=== PATIENT | female | born 2000 | race African-American/Black ===

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

== ENCOUNTER 2018-05-22 17:57 | Emergency (ER) | payer MEDICARE, OTHER ==
[2018-05-22 18:38] VITALS: RESP 18
[2018-05-22] MEDS ORDERED: SODIUM CHLORIDE 0.9% 1,000 ML IV STA ×2 (18:57→20:56)
--- NOTE | 2018-05-22 19:00 | ED ---
General Adult HPI - General Source: patient, RN notes reviewed Mode of arrival: ambulatory Limitations: no limitations <Faustino Yan - Last Filed: 05/22/18 19:57> <Guillermo Mcdowell - Last Filed: 05/22/18 21:12> - General Chief complaint: Abdominal Pain Stated complaint: abdominal & back pain Time Seen by Provider: 05/22/18 18:49 - History of Present Illness Initial comments: Patient 18-year-old female who is G1, P0, approximately 7 weeks by ultrasound, presents to the emergency room today with chief complaint of vaginal bleeding. Patient does admit that she was seen at [facility] 4 days ago. She states that she had all sounds and was told that she appear to be having a miscarriage. Patient does not that she went back [facility] yesterday was told that there could be a urinary tract infection. She states that she was prescribed antibiotics early in the but never got the prescription filled. Patient states she's been taking some over-the- counter medications. She states she still having cramping on the right side of the abdomen. Patient admits to vaginal bleeding that has been persistent since last . He has been to feeling hot and cold. She denies any other complaints. Patient denies any recent fever, chills, shortness of breath, chest pain, back pain, numbness or tingling, headaches or visual changes, or any other complaints. (Faustino Yan) - Related Data Home Medications Medication Instructions Recorded Confirmed Acetaminophen/Pamabrom [Midol 1 tab PO ONCE PRN 05/22/18 05/22/18 Caplet] Phenazopyridine HCl 95 mg PO ONCE PRN 05/22/18 05/22/18 Previous Rx's Medication Instructions Recorded Cephalexin [Keflex] 500 mg PO Q6HR #40 cap 05/22/18 Allergies Allergy/AdvReac Type Severity Reaction Status Date / Time No Known Allergies Allergy Verified 05/22/18 18:46 Review of Systems ROS Other: All systems not noted in ROS Statement are negative. <Faustino Yan - Last Filed: 05/22/18 19:57> ROS Other: All systems not noted in ROS Statement are negative. <Guillermo Mcdowell - Last Filed: 05/22/18 21:12> ROS Statement: Those systems with pertinent positive or pertinent negative responses have been documented in the HPI. Past Medical History Past Medical History: No Reported History History of Any Multi-Drug Resistant Organisms: None Reported Past Surgical History: No Surgical Hx Reported Past Psychological History: No Psychological Hx Reported Smoking Status: Never smoker Past Alcohol Use History: None Reported Past Drug Use History: None Reported <Faustino Yan - Last Filed: 05/22/18 19:57> General Exam Limitations: no limitations <Faustino Yan - Last Filed: 05/22/18 19:57> <Guillermo Mcdowell - Last Filed: 05/22/18 21:12> - General Exam Comments Initial Comments: General: The patient is awake and alert, in no distress, and does not appear acutely ill. Eye: There is normal conjunctiva bilaterally. No signs of icterus. Ears, nose, mouth and throat: There are moist mucous membranes and no oral lesions. Neck: The neck is supple, there is no tenderness or JVD. Cardiovascular: There is a regular rate and rhythm. No murmur, rub or gallop is appreciated. Respiratory: Lungs are clear to auscultation, respirations are non-labored, breath sounds are equal. No wheezes, stridor, rales, or rhonchi. Gastrointestinal: Soft on palpation. Patient does have mild tenderness right lower quadrant and suprapubic over the bladder. No rebound, guarding. Mild right CVA tenderness. Musculoskeletal: Normal ROM, no tenderness. Sensation intact. Strength 5/5. Pulses equal bilaterally 2+. Neurological: A&O x 3. CN II-XII intact, There are no obvious motor or sensory deficits. Coordination appears grossly intact. Speech is normal. Skin: Skin is warm and dry and no rashes or lesions are noted. Psychiatric: Cooperative, appropriate mood & affect, normal judgment. (Faustino Yan) Course <Faustino Yan - Last Filed: 05/22/18 19:57> <Guillermo Mcdowell - Last Filed: 05/22/18 21:12> Vital Signs 05/22/18 18:36 Temperature 98.2 F Pulse Rate 80 Respiratory 18 Rate Blood Pressure 136/80 O2 Sat by Pulse 99 Oximetry - Reevaluation(s) Reevaluation #1: 05/22/18 19:57 Patient's blood work and ultrasound is currently pending at this time. Case was discussed and signed out to Dr. Mcdowell. (Faustino Yan) Medical Decision Making - Lab Data Result diagrams: 05/22/18 19:35 05/22/18 19:35 <Guillermo Mcdowell - Last Filed: 05/22/18 21:12> - Lab Data Lab Results 05/22/18 05/22/18 05/22/18 Range/Units 19:35 19:35 19:35 WBC 9.6 (4.0-11.0) k/uL RBC 4.01 (3.80-5.40) m/uL Hgb 12.3 (11.4-16.0) gm/dL Hct 36.9 (34.0-46.0) % MCV 92.1 (80.0-100.0) fL MCH 30.7 (25.0-35.0) pg MCHC 33.3 (31.0-37.0) g/dL RDW 13.8 (11.5-15.5) % Plt Count 212 (150-450) k/uL Neutrophils % 74 % Lymphocytes % 16 % Monocytes % 6 % Eosinophils % 2 % Basophils % 0 % Neutrophils # 7.0 (1.3-7.7) k/uL Lymphocytes # 1.6 (1.0-4.8) k/uL Monocytes # 0.6 (0-1.0) k/uL Eosinophils # 0.2 (0-0.7) k/uL Basophils # 0.0 (0-0.2) k/uL Sodium 139 (137-145) mmol/L Potassium 3.7 (3.5-5.1) mmol/L Chloride 103 (98-107) mmol/L Carbon Dioxide 25 (22-30) mmol/L Anion Gap 11 mmol/L BUN 10 (7-17) mg/dL Creatinine 0.76 (0.52-1.04) mg/dL Est GFR (CKD-EPI)AfAm >90 (>60 ml/min/1.73 sqM) Est GFR (CKD-EPI)NonAf >90 (>60 ml/min/1.73 sqM) Glucose 89 (74-99) mg/dL Calcium 9.7 (8.4-10.2) mg/dL Total Bilirubin 0.7 (0.2-1.3) mg/dL AST 30 (14-36) U/L ALT 66 H (9-52) U/L Alkaline Phosphatase 45 (38-126) U/L Total Protein 7.4 (6.3-8.2) g/dL Albumin 4.3 (3.5-5.0) g/dL HCG, Quant 721.8 mIU/mL Urine Color Dark Brown Urine Appearance Cloudy H (Clear) Urine pH 6.0 (5.0-8.0) Ur Specific Willard 1.007 (1.001-1.035) Urine Protein Negative (Negative) Urine Glucose (UA) Negative (Negative) Urine Ketones Trace H (Negative) Urine Blood Moderate H (Negative) Urine Nitrite Positive H (Negative) Urine Bilirubin 1+ H (Negative) Urine Urobilinogen 2.0 (<2.0) mg/dL Ur Leukocyte Esterase Moderate H (Negative) Urine RBC 3 (0-5) /hpf Urine WBC 17 H (0-5) /hpf Ur Squamous Epith Cells 6 H (0-4) /hpf Amorphous Sediment Rare H (None) /hpf Urine Bacteria Few H (None) /hpf Urine Mucus Rare H (None) /hpf Blood Type Blood Type Recheck 05/22/18 Range/Units 19:40 WBC (4.0-11.0) k/uL RBC (3.80-5.40) m/uL Hgb (11.4-16.0) gm/dL Hct (34.0-46.0) % MCV (80.0-100.0) fL MCH (25.0-35.0) pg MCHC (31.0-37.0) g/dL RDW (11.5-15.5) % Plt Count (150-450) k/uL Neutrophils % % Lymphocytes % % Monocytes % % Eosinophils % % Basophils % % Neutrophils # (1.3-7.7) k/uL Lymphocytes # (1.0-4.8) k/uL Monocytes # (0-1.0) k/uL Eosinophils # (0-0.7) k/uL Basophils # (0-0.2) k/uL Sodium (137-145) mmol/L Potassium (3.5-5.1) mmol/L Chloride (98-107) mmol/L Carbon Dioxide (22-30) mmol/L Anion Gap mmol/L BUN (7-17) mg/dL Creatinine (0.52-1.04) mg/dL Est GFR (CKD-EPI)AfAm (>60 ml/min/1.73 sqM) Est GFR (CKD-EPI)NonAf (>60 ml/min/1.73 sqM) Glucose (74-99) mg/dL Calcium (8.4-10.2) mg/dL Total Bilirubin (0.2-1.3) mg/dL AST (14-36) U/L ALT (9-52) U/L Alkaline Phosphatase (38-126) U/L Total Protein (6.3-8.2) g/dL Albumin (3.5-5.0) g/dL HCG, Quant mIU/mL Urine Color Urine Appearance (Clear) Urine pH (5.0-8.0) Ur Specific Willard (1.001-1.035) Urine Protein (Negative) Urine Glucose (UA) (Negative) Urine Ketones (Negative) Urine Blood (Negative) Urine Nitrite (Negative) Urine Bilirubin (Negative) Urine Urobilinogen (<2.0) mg/dL Ur Leukocyte Esterase (Negative) Urine RBC (0-5) /hpf Urine WBC (0-5) /hpf Ur Squamous Epith Cells (0-4) /hpf Amorphous Sediment (None) /hpf Urine Bacteria (None) /hpf Urine Mucus (None) /hpf Blood Type AB Positive Blood Type Recheck ABR ONLY Disposition <Faustino Yan - Last Filed: 05/22/18 19:57> Is patient prescribed a controlled substance at d/c from ED?: No <Guillermo Mcdowell - Last Filed: 05/22/18 21:12> Clinical Impression: Abdominal pain, Incomplete , UTI (urinary tract infection) Disposition: HOME SELF-CARE Condition: Good Instructions: Miscarriage (ED), Threatened Miscarriage (ED), Urinary Tract Infection in Women (ED) Prescriptions: Cephalexin [Keflex] 500 mg PO Q6HR #40 cap Referrals: Pollo Stone DO [Doctor of Osteopathic Medicine] - 1-2 days
[2018-05-22 19:58] LABS: Basophils % (A) 0 %; Eosinophils # (A) 0.2 k/uL (0-0.7); Eosinophils % (A) 2 %; HCT 36.9 % (34.0-46.0); HGB 12.3 gm/dL (11.4-16.0); Lymphocytes # (A) 1.6 k/uL (1.0-4.8); Lymphocytes % (A) 16 %; MCH 30.7 pg (25.0-35.0); MCHC 33.3 g/dL (31.0-37.0); MCV 92.1 fL (80.0-100.0); Mean Platelet Volume 7.2; Monocytes # (A) 0.6 k/uL (0-1.0); Monocytes % (A) 6 %; Neutrophils % (A) 74 %; Platelet Count 212 k/uL (150-450); RBC 4.01 m/uL (3.80-5.40); RDW 13.8 % (11.5-15.5); WBC 9.6 k/uL (4.0-11.0)
[2018-05-22 20:04] LABS: ALT 66 U/L (9-52); AST 30 U/L (14-36); Albumin 4.3 g/dL (3.5-5.0); Alkaline Phosphatase 45 U/L (38-126); Anion Gap 11 mmol/L; Blood Urea Nitrogen 10 mg/dL (7-17); Calcium 9.7 mg/dL (8.4-10.2); Carbon Dioxide 25 mmol/L (22-30); Chloride 103 mmol/L (98-107); Glucose 89 mg/dL (74-99); Potassium 3.7 mmol/L (3.5-5.1); Sodium 139 mmol/L (137-145); Total Bilirubin 0.7 mg/dL (0.2-1.3); Total Protein 7.4 g/dL (6.3-8.2)
[2018-05-22 20:11] LABS: Amorphous Sediment,Urine Rare /hpf; Appearance,Urine Cloudy (Clear); Bacteria,Urine Few /hpf; Bilirubin,Urine 1+ (Negative); Blood,Urine Moderate (Negative); Color,Urine Dark Brown; Glucose,Urine (UA) Negative (Negative); Ketones,Urine Trace (Negative); Leukocyte Esterase,Urine Moderate (Negative); Mucus,Urine Rare /hpf; Nitrite,Urine Positive (Negative); Protein,Urine Negative (Negative); RBC,Urine 3 /hpf (0-5); Specific Gravity,Urine 1.007 (1.001-1.035); Squamous Epithelial Cell,Urine 6 /hpf (0-4)
[2018-05-22 20:21] LABS: HCG,Quantitative Serum 721.8 mIU/mL
[2018-05-22] MEDS ORDERED: cefTRIAXone 2,000 MG in SODIUM CHLORIDE 0.9% 100 ML IVPB STA (20:32)
--- NOTE | 2018-05-22 20:45 | US ---
EXAMINATION TYPE: Transabdominal DATE OF EXAM: 11/07/17 COMPARISON: NONE CLINICAL HISTORY: Pain. bleeding, back and abdominal pain. Patient had a normal early OB ultrasound, and then another ultrasound after that showed she was miscarrying, both done at another facility. EXAM PERFORMED: Transvaginal (TV) and Transabdominal (TA) EXAM MEASUREMENTS: GESTATIONAL AGE / DATING Physician Established: Not yet established Dates by LMP: (8 weeks/2 days) EDC: 12/30/2018 Dates by First Scan: No previous this is first scan Dates by Current Scan for: empty sac seen in [facility] MATERNAL ANATOMY Uterus: 7.7 x 5.3 x 6.3 cm Right Ovary: 2.5 x 1.5 x 3.3 cm Left Ovary: 3.3 x 2.1 x 2.1 cm Post CDS / Adnexa: wnl Presence of free fluid: none GESTATION / SURVEY MSD: 1.3 cm (5 weeks/3 days) Date of LMP: 03/25/2018 Beta HcG (if available): 721 Gestational sac seen in JAH with some internal linear echoes. No pole identified. IMPRESSION: Complex fluid collection in the lower uterine segment consistent with incomplete .
[2018-05-22 22:11] VITALS: BP 123/80; PULSE 67; TEMP 98.1
== END 2018-05-22 22:09 | disposition home or self-care (01) ==
LOC: EC 17:57
DX: O03.4 Incomplete spontaneous abortion without complication (principal); O23.41 Unspecified infection of urinary tract in pregnancy, first trimester; Z3A.01 Less than 8 weeks gestation of pregnancy
CPT/HCPCS: 99284; 96365; 96361; 36415; 86900; 86901; 80053; 85025; 81001; 84702; 87086; 76801; 76817; J0696

== ENCOUNTER 2018-08-22 15:51 | Emergency (ER) | payer MEDICARE, OTHER ==
[2018-08-22 15:56] VITALS: RESP 16; TEMP 98
[2018-08-22] MEDS ORDERED: SODIUM CHLORIDE 0.9% 1,000 ML IV STA (16:06)
[2018-08-22] MEDS ORDERED: METOCLOPRAMIDE 5 MG/ML 2 ML VIAL IVP STA (16:06)
--- NOTE | 2018-08-22 16:10 | ED ---
General Adult HPI - General Chief complaint: Nausea/Vomiting/Diarrhea Stated complaint: Vomiting Time Seen by Provider: 08/22/18 15:59 Source: patient, RN notes reviewed Mode of arrival: ambulatory Limitations: no limitations - History of Present Illness Initial comments: Patient is a 18-year-old female presenting to the emergency room today with a chief complaint of nausea vomiting over the last 2 months. Patient does admit that she has been experiencing symptoms daily. She states that her abdomen cramps up and she has an episode of vomiting. States the abdomen and feels fine but then symptoms recur. She states it's been occurring throughout the day. Denies any medicines to make it better or worse. Patient states she did see her family doctor last week and thought there could be some issues with constipation. She did start some stool softeners and states that she's had normal bowel movements. Denies any other complaints. Patient denies any recent fever, chills, shortness of breath, chest pain, back pain, headaches or visual changes, or any other complaints. - Related Data Home Medications Medication Instructions Recorded Confirmed Medroxyprogesterone Acetate 150 mg IM Q84D 08/22/18 08/22/18 [Depo-Provera] Previous Rx's Medication Instructions Recorded Cephalexin [Keflex] 500 mg PO Q12HR 7 Days cap 08/22/18 Cur-Fndq-Kuhcj Acid 1 cap PO DAILY #30 cap 08/22/18 [-U Capsule (formulary)] Allergies Allergy/AdvReac Type Severity Reaction Status Date / Time No Known Allergies Allergy Verified 08/22/18 16:08 Review of Systems ROS Statement: Those systems with pertinent positive or pertinent negative responses have been documented in the HPI. ROS Other: All systems not noted in ROS Statement are negative. Past Medical History Past Medical History: No Reported History History of Any Multi-Drug Resistant Organisms: None Reported Past Surgical History: No Surgical Hx Reported Past Psychological History: No Psychological Hx Reported Smoking Status: Never smoker Past Alcohol Use History: None Reported Past Drug Use History: None Reported General Exam - General Exam Comments Initial Comments: General: The patient is awake and alert, in no distress, and does not appear acutely ill. Eye: There is normal conjunctiva bilaterally. No signs of icterus. Ears, nose, mouth and throat: There are moist mucous membranes and no oral lesions. Neck: The neck is supple, there is no tenderness or JVD. Cardiovascular: There is a regular rate and rhythm. No murmur, rub or gallop is appreciated. Respiratory: Lungs are clear to auscultation, respirations are non-labored, breath sounds are equal. No wheezes, stridor, rales, or rhonchi. Gastrointestinal: Admits soft on palpation. Mild tenderness diffusely throughout both upper and lower quadrants. No rebound, guarding or CVA tenderness. Musculoskeletal: Normal ROM, no tenderness. Neurological: A&O x 3. CN II-XII intact, There are no obvious motor or sensory deficits. Coordination appears grossly intact. Speech is normal. Skin: Skin is warm and dry and no rashes or lesions are noted. Psychiatric: Cooperative, appropriate mood & affect, normal judgment. Limitations: no limitations Course Vital Signs 08/22/18 15:54 Temperature 98 F Pulse Rate 97 Respiratory 16 Rate Blood Pressure 121/63 O2 Sat by Pulse 99 Oximetry Medical Decision Making - Medical Decision Making Patient reexamined at this time shows no signs of distress she is resting comfortably. Patient presented to the emergency room for nausea vomiting over the last 2 months. A urine test was positive. A beta hCG is 95,000. Patient's urinalysis shows possible infection. Culture is pending. Ultrasound obtained shows single IUP measuring 8 weeks 3 days. Adnexa within normal limits. No subchorionic bleed. No free fluid. Results discussed with the patient. This time patient will be discharged home started on vitamins, given antibiotics cover for infection. Is advised follow-up with OB/ [facility] FARMWORKER over the next 2 days returning if symptoms increase or worsen or for any other concerns. - Lab Data Result diagrams: 08/22/18 16:20 08/22/18 16:20 Lab Results 08/22/18 08/22/18 08/22/18 Range/Units 16:20 16:20 16:20 WBC 10.9 (4.0-11.0) k/uL RBC 4.09 (3.80-5.40) m/uL Hgb 12.6 (11.4-16.0) gm/dL Hct 37.6 (34.0-46.0) % MCV 91.9 (80.0-100.0) fL MCH 30.9 (25.0-35.0) pg MCHC 33.6 (31.0-37.0) g/dL RDW 13.0 (11.5-15.5) % Plt Count 240 (150-450) k/uL Neutrophils % 78 % Lymphocytes % 14 % Monocytes % 5 % Eosinophils % 1 % Basophils % 0 % Neutrophils # 8.5 H (1.3-7.7) k/uL Lymphocytes # 1.5 (1.0-4.8) k/uL Monocytes # 0.5 (0-1.0) k/uL Eosinophils # 0.1 (0-0.7) k/uL Basophils # 0.0 (0-0.2) k/uL Sodium 137 (137-145) mmol/L Potassium 4.3 (3.5-5.1) mmol/L Chloride 104 (98-107) mmol/L Carbon Dioxide 24 (22-30) mmol/L Anion Gap 9 mmol/L BUN 4 L (7-17) mg/dL Creatinine 0.55 (0.52-1.04) mg/dL Est GFR (CKD-EPI)AfAm >90 (>60 ml/min/1.73 sqM) Est GFR (CKD-EPI)NonAf >90 (>60 ml/min/1.73 sqM) Glucose 90 (74-99) mg/dL Calcium 9.7 (8.4-10.2) mg/dL Total Bilirubin 0.7 (0.2-1.3) mg/dL AST 15 (14-36) U/L ALT 27 (9-52) U/L Alkaline Phosphatase 37 L (38-126) U/L Total Protein 7.1 (6.3-8.2) g/dL Albumin 4.3 (3.5-5.0) g/dL Amylase 99 (30-110) U/L Lipase 108 (23-300) U/L TSH 1.620 (0.465-4.680) mIU/L HCG, Quant mIU/mL Urine Color Urine Appearance (Clear) Urine pH (5.0-8.0) Ur Specific Effort (1.001-1.035) Urine Protein (Negative) Urine Glucose (UA) (Negative) Urine Ketones (Negative) Urine Blood (Negative) Urine Nitrite (Negative) Urine Bilirubin (Negative) Urine Urobilinogen (<2.0) mg/dL Ur Leukocyte Esterase (Negative) Urine RBC (0-5) /hpf Urine WBC (0-5) /hpf Ur Squamous Epith Cells (0-4) /hpf Urine Bacteria (None) /hpf Urine Mucus (None) /hpf Urine HCG, Qual Detected (Not Detectd) 08/22/18 08/22/18 Range/Units 16:20 16:20 WBC (4.0-11.0) k/uL RBC (3.80-5.40) m/uL Hgb (11.4-16.0) gm/dL Hct (34.0-46.0) % MCV (80.0-100.0) fL MCH (25.0-35.0) pg MCHC (31.0-37.0) g/dL RDW (11.5-15.5) % Plt Count (150-450) k/uL Neutrophils % % Lymphocytes % % Monocytes % % Eosinophils % % Basophils % % Neutrophils # (1.3-7.7) k/uL Lymphocytes # (1.0-4.8) k/uL Monocytes # (0-1.0) k/uL Eosinophils # (0-0.7) k/uL Basophils # (0-0.2) k/uL Sodium (137-145) mmol/L Potassium (3.5-5.1) mmol/L Chloride (98-107) mmol/L Carbon Dioxide (22-30) mmol/L Anion Gap mmol/L BUN (7-17) mg/dL Creatinine (0.52-1.04) mg/dL Est GFR (CKD-EPI)AfAm (>60 ml/min/1.73 sqM) Est GFR (CKD-EPI)NonAf (>60 ml/min/1.73 sqM) Glucose (74-99) mg/dL Calcium (8.4-10.2) mg/dL Total Bilirubin (0.2-1.3) mg/dL AST (14-36) U/L ALT (9-52) U/L Alkaline Phosphatase (38-126) U/L Total Protein (6.3-8.2) g/dL Albumin (3.5-5.0) g/dL Amylase (30-110) U/L Lipase (23-300) U/L TSH (0.465-4.680) mIU/L HCG, Quant 10386.9 mIU/mL Urine Color Yellow Urine Appearance Cloudy H (Clear) Urine pH 6.0 (5.0-8.0) Ur Specific Effort 1.020 (1.001-1.035) Urine Protein Trace H (Negative) Urine Glucose (UA) Negative (Negative) Urine Ketones Negative (Negative) Urine Blood Small H (Negative) Urine Nitrite Negative (Negative) Urine Bilirubin Negative (Negative) Urine Urobilinogen <2.0 (<2.0) mg/dL Ur Leukocyte Esterase Moderate H (Negative) Urine RBC 17 H (0-5) /hpf Urine WBC 19 H (0-5) /hpf Ur Squamous Epith Cells 10 H (0-4) /hpf Urine Bacteria Occasional H (None) /hpf Urine Mucus Many H (None) /hpf Urine HCG, Qual (Not Detectd) Disposition Clinical Impression: , UTI (urinary tract infection) Disposition: HOME SELF-CARE Condition: Good Instructions: (ED) Additional Instructions: Please use medication as discussed. Please follow-up with [facility]/family doctor in the next 2 days of symptoms have not improved. Please return to emergency room if the symptoms increase or worsen or for any other concerns. Prescriptions: Cephalexin [Keflex] 500 mg PO Q12HR 7 Days cap Fsn-Xbqa-Rwjge Acid [-U Capsule (formulary)] 1 cap PO DAILY # 30 cap Is patient prescribed a controlled substance at d/c from ED?: No Referrals: Giuliano Ruiz MD [Primary Care Provider] - 1-2 days Time of Disposition: 18:33
[2018-08-22 16:53] LABS: Basophils % (A) 0 %; Eosinophils # (A) 0.1 k/uL (0-0.7); Eosinophils % (A) 1 %; HCT 37.6 % (34.0-46.0); HGB 12.6 gm/dL (11.4-16.0); Lymphocytes # (A) 1.5 k/uL (1.0-4.8); Lymphocytes % (A) 14 %; MCH 30.9 pg (25.0-35.0); MCHC 33.6 g/dL (31.0-37.0); MCV 91.9 fL (80.0-100.0); Mean Platelet Volume 7.2; Monocytes # (A) 0.5 k/uL (0-1.0); Monocytes % (A) 5 %; Neutrophils # (A) 8.5 k/uL (1.3-7.7); Neutrophils % (A) 78 %; Platelet Count 240 k/uL (150-450); RBC 4.09 m/uL (3.80-5.40); WBC 10.9 k/uL (4.0-11.0)
[2018-08-22 16:55] LABS: Appearance,Urine Cloudy (Clear); Bacteria,Urine Occasional /hpf; Bilirubin,Urine Negative (Negative); Blood,Urine Small (Negative); Color,Urine Yellow; Glucose,Urine (UA) Negative (Negative); Ketones,Urine Negative (Negative); Leukocyte Esterase,Urine Moderate (Negative); Mucus,Urine Many /hpf; Nitrite,Urine Negative (Negative); Protein,Urine Trace (Negative); RBC,Urine 17 /hpf (0-5); Squamous Epithelial Cell,Urine 10 /hpf (0-4); Urobilinogen,Urine <2.0 mg/dL (<2.0); WBC,Urine 19 /hpf (0-5)
[2018-08-22 17:00] LABS: ALT 27 U/L (9-52); AST 15 U/L (14-36); Albumin 4.3 g/dL (3.5-5.0); Alkaline Phosphatase 37 U/L (38-126); Amylase 99 U/L (30-110); Anion Gap 9 mmol/L; Blood Urea Nitrogen 4 mg/dL (7-17); Calcium 9.7 mg/dL (8.4-10.2); Carbon Dioxide 24 mmol/L (22-30); Chloride 104 mmol/L (98-107); Glucose 90 mg/dL (74-99); Lipase 108 U/L (23-300); Potassium 4.3 mmol/L (3.5-5.1); Sodium 137 mmol/L (137-145); Total Bilirubin 0.7 mg/dL (0.2-1.3); Total Protein 7.1 g/dL (6.3-8.2)
--- NOTE | 2018-08-22 18:07 | US ---
EXAMINATION TYPE: Transabdominal DATE OF EXAM: 11/07/17 COMPARISON: NONE CLINICAL HISTORY: Pain. Vomiting. Patient had BC shot this month not knowing she was . EXAM PERFORMED: Transabdominal (TA) EXAM MEASUREMENTS: GESTATIONAL AGE / DATING Physician Established: Not yet established Dates by LMP: LMP unknown Dates by First Scan: No previous this is first scan Dates by Current Scan for: (8 weeks/4 days) EDC: 03/30/2019 MATERNAL ANATOMY Uterus: 9.4 x 5.6 x 8.1 cm Right Ovary: 2.7 x 1.3 x 1.7 cm Left Ovary: 2.2 x 1.3 x 2.5 cm Post CDS / Adnexa: wnl Presence of free fluid: no Presence of corpus luteal cyst: Yes left ovary. Presence of subchorionic bleed: no GESTATION / SURVEY CRL: 2.0cm (8 weeks/4 days) Yolk Sac (normal less than 6mm): 4mm Heart Rate: 172 bpm Rhythm: Normal IUP: Viable IUP Beta HcG (if available): Not available at this time Viable IUP 8w3d BRANDEE 03/30/2019 HR 172 BPM IMPRESSION: No complicating process seen.
[2018-08-22 18:48] VITALS: BP 116/47; PULSE 84
== END 2018-08-22 18:48 | disposition home or self-care (01) ==
LOC: EC 15:51
DX: O23.41 Unspecified infection of urinary tract in pregnancy, first trimester (principal); O21.9 Vomiting of pregnancy, unspecified; O99.89 Other specified diseases and conditions complicating pregnancy, childbirth and the puerperium; R19.7 Diarrhea, unspecified; Z3A.08 8 weeks gestation of pregnancy; Z79.3 Long term (current) use of hormonal contraceptives
CPT/HCPCS: 36415; 80053; 84443; 82150; 83690; 85025; 81001; 81025; 84702; 76801; 99284; 96374; 96361; J2765

== ENCOUNTER 2018-10-09 20:14 | Inpatient (IN) | payer MEDICARE, OTHER ==
[2018-10-09] MEDS ORDERED: ACETAMINOPHEN TAB 500 MG TAB PO STA (20:52)
[2018-10-09 20:56] LABS: Appearance,Urine Cloudy (Clear); Bacteria,Urine Many /hpf; Bilirubin,Urine Negative (Negative); Blood,Urine Small (Negative); Budding Yeast,Urine Occasional /hpf; Color,Urine Yellow; Glucose,Urine (UA) Negative (Negative); Ketones,Urine 4+ (Negative); Leukocyte Esterase,Urine Large (Negative); Mucus,Urine Many /hpf; Nitrite,Urine Negative (Negative); Protein,Urine 1+ (Negative); RBC,Urine 9 /hpf (0-5); Specific Gravity,Urine 1.018 (1.001-1.035); Squamous Epithelial Cell,Urine 21 /hpf (0-4); Urobilinogen,Urine <2.0 mg/dL (<2.0)
[2018-10-09] MEDS ORDERED: cefTRIAXone IN SWFI 1,000 MG/10 ML SYRINGE IVP STA (21:08)
[2018-10-09 21:34] LABS: Basophils % (A) 0 %; Eosinophils % (A) 0 %; HCT 32.8 % (34.0-46.0); HGB 11.3 gm/dL (11.4-16.0); Lymphocytes # (A) 0.8 k/uL (1.0-4.8); Lymphocytes % (A) 5 %; MCH 31.1 pg (25.0-35.0); MCHC 34.5 g/dL (31.0-37.0); Mean Platelet Volume 7.9; Monocytes # (A) 1.1 k/uL (0-1.0); Monocytes % (A) 6 %; Neutrophils # (A) 15.8 k/uL (1.3-7.7); Neutrophils % (A) 88 %; Platelet Count 215 k/uL (150-450); RBC 3.65 m/uL (3.80-5.40); RDW 12.9 % (11.5-15.5)
[2018-10-09] MEDS: SODIUM CHLORIDE 0.9% 500 ML 500 ML IV SCH (21:34)
[2018-10-09] MEDS: SODIUM CHLORIDE 0.9% 1,000 ML IV SCH (21:34)
[2018-10-09 21:42] LABS: Partial Thromboplastin Time 24.2 sec (22.0-30.0); Prothrombin Time 10.8 sec (9.0-12.0)
--- NOTE | 2018-10-09 21:45 | ED ---
General Adult HPI - General Chief complaint: Back Pain/Injury Stated complaint: Back pain Time Seen by Provider: 10/09/18 20:32 Source: patient, family Mode of arrival: wheelchair Limitations: no limitations - History of Present Illness Initial comments: This is a 18-year-old female who is currently at 15 weeks gestation and follows with Dr. Hendrickson who presents emergent department for lower abdominal pain , back pain, and flank pain. Patient states that the symptoms started yesterday and have gradually worsened. She also has had some nausea and vomiting. No diarrhea. She started spiking a fever today and was concerned so she can emergency department. She does have a history of urinary tract infections and was treated a couple of months ago however did not complete the course of antibiotics at that time. She denies any abnormal vaginal discharge or bleeding. She denies any cramping. She denies any cough or shortness of breath. She does admit to a little bit of some right ear pain. Denies any sore throat or runny nose. No sick contacts. No other acute complaints. - Related Data Previous Rx's Medication Instructions Recorded Bva-Cspv-Ikhkn Acid 1 cap PO DAILY #30 cap 08/22/18 [-U Capsule (formulary)] Allergies Allergy/AdvReac Type Severity Reaction Status Date / Time No Known Allergies Allergy Verified 10/10/18 00:14 Review of Systems ROS Statement: Those systems with pertinent positive or pertinent negative responses have been documented in the HPI. ROS Other: All systems not noted in ROS Statement are negative. Past Medical History Past Medical History: No Reported History History of Any Multi-Drug Resistant Organisms: None Reported Past Surgical History: No Surgical Hx Reported Past Psychological History: No Psychological Hx Reported Smoking Status: Never smoker Past Alcohol Use History: None Reported Past Drug Use History: None Reported - Past Family History Mother Family Medical History: Cancer Additional Family Medical History / Comment(s): Colon General Exam - General Exam Comments Initial Comments: Constitutional: Awake alert Appears comfortable Head: Normocephalic atraumatic Eyes: no conjunctival injection No scleral icterus EOMI ENT: The right TM appears opaque however is not bulging, left TM is normal, oropharynx is not erythematous or edematous Neck: No JVD Supple Heart: Tachycardia with regular rhythm normal S1-S2 no murmurs Lungs: Clear to auscultation bilaterally No wheezing No rales Abdomen: Soft nondistended there is some mild tenderness to the suprapubic and pelvic region, the patient has some right-sided CVA tenderness Extremities: Non edematous DP pulses intact Radial pulses intact Neuro: A&Ox3 No focal neurologic deficits Psych: Appropriate mood and affect Limitations: no limitations Course Vital Signs 10/09/18 10/09/18 10/09/18 20:25 21:52 21:56 Temperature 102.5 F H 101.5 F H Pulse Rate 135 H Respiratory 19 20 Rate Blood Pressure 98/61 O2 Sat by Pulse 96 96 Oximetry 10/09/18 10/09/18 10/09/18 22:00 22:10 22:20 Temperature Pulse Rate 108 H 101 H 97 Respiratory 20 8 L Rate Blood Pressure 110/65 108/62 100/58 O2 Sat by Pulse 96 94 L 95 Oximetry 10/09/18 10/09/18 10/09/18 22:31 22:40 22:50 Temperature Pulse Rate 99 96 Respiratory 10 L Rate Blood Pressure 99/56 99/56 98/53 O2 Sat by Pulse 94 L 95 Oximetry 10/09/18 10/09/18 10/09/18 23:00 23:10 23:20 Temperature Pulse Rate 91 94 Respiratory 7 L 7 L Rate Blood Pressure 98/53 98/53 102/59 O2 Sat by Pulse 96 96 Oximetry 10/09/18 23:30 Temperature 98.2 F Pulse Rate 93 Respiratory 14 Rate Blood Pressure 102/59 O2 Sat by Pulse 95 Oximetry Medical Decision Making - Medical Decision Making This is a 18-year-old female who presents emergency department for suprapubic abdominal pain and flank pain. UA wasn't indicative of a urinary tract infection. She does have a leukocytosis significant for 18,000. Ultrasound the kidney and fetus were unremarkable. The patient was febrile and tachycardic on arrival. The patient will be admitted for sepsis and pyelonephritis. Patient did not have an elevated lactate. Heart rate and fever did improve with Tylenol administration. The patient was updated and agrees. Dr. Mckinney accepts the admission. - Lab Data Result diagrams: 10/09/18 21:20 10/09/18 21:20 Lab Results 10/09/18 10/09/18 10/09/18 Range/Units 20:36 21:20 21:20 WBC 18.0 H (4.0-11.0) k/uL RBC 3.65 L (3.80-5.40) m/uL Hgb 11.3 L (11.4-16.0) gm/dL Hct 32.8 L (34.0-46.0) % MCV 90.0 (80.0-100.0) fL MCH 31.1 (25.0-35.0) pg MCHC 34.5 (31.0-37.0) g/dL RDW 12.9 (11.5-15.5) % Plt Count 215 (150-450) k/uL Neutrophils % 88 % Lymphocytes % 5 % Monocytes % 6 % Eosinophils % 0 % Basophils % 0 % Neutrophils # 15.8 H (1.3-7.7) k/uL Lymphocytes # 0.8 L (1.0-4.8) k/uL Monocytes # 1.1 H (0-1.0) k/uL Eosinophils # 0.0 (0-0.7) k/uL Basophils # 0.0 (0-0.2) k/uL PT (9.0-12.0) sec INR (<1.2) APTT (22.0-30.0) sec Sodium 131 L (137-145) mmol/L Potassium 3.5 (3.5-5.1) mmol/L Chloride 97 L (98-107) mmol/L Carbon Dioxide 21 L (22-30) mmol/L Anion Gap 13 mmol/L BUN 9 (7-17) mg/dL Creatinine 0.56 (0.52-1.04) mg/dL Est GFR (CKD-EPI)AfAm >90 (>60 ml/min/1.73 sqM) Est GFR (CKD-EPI)NonAf >90 (>60 ml/min/1.73 sqM) Glucose 116 H (74-99) mg/dL Plasma Lactic Acid Carmelo (0.7-2.0) mmol/L Calcium 9.5 (8.4-10.2) mg/dL Total Bilirubin 0.9 (0.2-1.3) mg/dL AST 20 (14-36) U/L ALT 33 (9-52) U/L Alkaline Phosphatase 56 (38-126) U/L Total Protein 6.7 (6.3-8.2) g/dL Albumin 3.8 (3.5-5.0) g/dL Urine Color Yellow Urine Appearance Cloudy H (Clear) Urine pH 6.0 (5.0-8.0) Ur Specific Carpio 1.018 (1.001-1.035) Urine Protein 1+ H (Negative) Urine Glucose (UA) Negative (Negative) Urine Ketones 4+ H (Negative) Urine Blood Small H (Negative) Urine Nitrite Negative (Negative) Urine Bilirubin Negative (Negative) Urine Urobilinogen <2.0 (<2.0) mg/dL Ur Leukocyte Esterase Large H (Negative) Urine RBC 9 H (0-5) /hpf Urine WBC 171 H (0-5) /hpf Urine WBC Clumps Occasional H (None) /hpf Ur Squamous Epith Cells 21 H (0-4) /hpf Urine Bacteria Many H (None) /hpf Urine Mucus Many H (None) /hpf Urine Yeast (Budding) Occasional H (None) /hpf Influenza Type A RNA (Not Detectd) Influenza Type B (PCR) (Not Detectd) 10/09/18 10/09/18 10/09/18 Range/Units 21:20 21:20 21:20 WBC (4.0-11.0) k/uL RBC (3.80-5.40) m/uL Hgb (11.4-16.0) gm/dL Hct (34.0-46.0) % MCV (80.0-100.0) fL MCH (25.0-35.0) pg MCHC (31.0-37.0) g/dL RDW (11.5-15.5) % Plt Count (150-450) k/uL Neutrophils % % Lymphocytes % % Monocytes % % Eosinophils % % Basophils % % Neutrophils # (1.3-7.7) k/uL Lymphocytes # (1.0-4.8) k/uL Monocytes # (0-1.0) k/uL Eosinophils # (0-0.7) k/uL Basophils # (0-0.2) k/uL PT 10.8 (9.0-12.0) sec INR 1.0 (<1.2) APTT 24.2 (22.0-30.0) sec Sodium (137-145) mmol/L Potassium (3.5-5.1) mmol/L Chloride (98-107) mmol/L Carbon Dioxide (22-30) mmol/L Anion Gap mmol/L BUN (7-17) mg/dL Creatinine (0.52-1.04) mg/dL Est GFR (CKD-EPI)AfAm (>60 ml/min/1.73 sqM) Est GFR (CKD-EPI)NonAf (>60 ml/min/1.73 sqM) Glucose (74-99) mg/dL Plasma Lactic Acid Carmelo 1.9 (0.7-2.0) mmol/L Calcium (8.4-10.2) mg/dL Total Bilirubin (0.2-1.3) mg/dL AST (14-36) U/L ALT (9-52) U/L Alkaline Phosphatase (38-126) U/L Total Protein (6.3-8.2) g/dL Albumin (3.5-5.0) g/dL Urine Color Urine Appearance (Clear) Urine pH (5.0-8.0) Ur Specific Carpio (1.001-1.035) Urine Protein (Negative) Urine Glucose (UA) (Negative) Urine Ketones (Negative) Urine Blood (Negative) Urine Nitrite (Negative) Urine Bilirubin (Negative) Urine Urobilinogen (<2.0) mg/dL Ur Leukocyte Esterase (Negative) Urine RBC (0-5) /hpf Urine WBC (0-5) /hpf Urine WBC Clumps (None) /hpf Ur Squamous Epith Cells (0-4) /hpf Urine Bacteria (None) /hpf Urine Mucus (None) /hpf Urine Yeast (Budding) (None) /hpf Influenza Type A RNA Not Detected (Not Detectd) Influenza Type B (PCR) Not Detected (Not Detectd) Disposition Clinical Impression: Sepsis, Pyelonephritis Disposition: ADMITTED IP TO THIS HOSP Condition: Good
[2018-10-09 21:55] LABS: ALT 33 U/L (9-52); AST 20 U/L (14-36); Albumin 3.8 g/dL (3.5-5.0); Alkaline Phosphatase 56 U/L (38-126); Anion Gap 13 mmol/L; Blood Urea Nitrogen 9 mg/dL (7-17); Calcium 9.5 mg/dL (8.4-10.2); Carbon Dioxide 21 mmol/L (22-30); Chloride 97 mmol/L (98-107); Glucose 116 mg/dL (74-99); Potassium 3.5 mmol/L (3.5-5.1); Sodium 131 mmol/L (137-145); Total Bilirubin 0.9 mg/dL (0.2-1.3); Total Protein 6.7 g/dL (6.3-8.2)
[2018-10-09] MEDS ORDERED: NALOXONE 0.4 MG/ML 1 ML VIAL IV PRN (23:13)
--- NOTE | 2018-10-09 23:31 | US ---
EXAMINATION TYPE: US OB >= 14 wk fetus DATE OF EXAM: 10/09/2018 COMPARISON: 08/22/18 CLINICAL HISTORY: pelvic/back pain. TECHNIQUE: Transabdominal (TA) GESTATIONAL AGE / DATING Physician Established: (15 weeks/3 days) EDC: 03/30/2019 Dates by LMP: (15 weeks/3 days) EDC: 03/30/2019 Dates by First Scan: (8 weeks/4 days) EDC: 03/30/2019 Dates by Current Scan: (16 weeks/4 days) EDC: 03/22/2019 SURVEY IUP: Single PLACENTA: Fundal PREVIA: No Previa 4 quadrant RIN: 11.67 cm CERVICAL LENGTH (transabdominal: norm > 3.0cm): 3.4 cm BIOMETRY PRESENTATION: Breech LIE: Longitudinal BPD: 3.47 cm 16 weeks / 5 days HC: 12.3 cm 16 weeks / 1 days AC: 11.15 cm 17 weeks / 0 days FL: 2.11 cm 16 weeks / 2 days ESTIMATED WEIGHT IN GRAMS: 162.50 grams ESTIMATED WEIGHT IN LBS/OZ: 0 lbs. 6 oz. WEIGHT PERCENTAGE BASED ON ESTABLISHED DATES: 97% HC/AC: 1.10 cm FL/AC: 18.91bm HEART RATE: 160 bpm RHYTHM: Normal No images of maternal ovaries. IMPRESSION: Single live IUP in breech presentation, as above.
--- NOTE | 2018-10-09 23:35 | US ---
DATE OF EXAM: 10/09/2018 COMPARISON: NONE CLINICAL HISTORY: flank pain, fever. Back pain EXAM MEASUREMENTS: Right Kidney: 10.8 x 4.9 x 4.4 cm Left Kidney: 10.7 x 6.0 x 4.7 cm Right Kidney: Unremarkable. No hydronephrosis. Left Kidney: Unremarkable. No hydronephrosis. Bladder: Unremarkable in appearance. Ureteral Jets seen: Left jet seen. Right jet not seen. IMPRESSION: 1. Unremarkable sonographic appearance of kidneys. 2. Nonvisualized right ureteral jet on Doppler imaging of bladder. Left jet seen.
[2018-10-10] MEDS: ACETAMINOPHEN TAB 325 MG TAB PO PRN ×3 (06:55→19:25)
[2018-10-10] MEDS: ONDANSETRON 4 MG/2 ML VIAL IVP PRN (09:13)
--- NOTE | 2018-10-10 15:35 | P.HPIM ---
History of Present Illness 18-year-old pleasant female 16 weeks of gestation came in with complaints of her fever chills right lower abdominal pain and flank pain found to have urinary tract infection with significant abnormal urine with elevated white blood cell count Along with the positive leukocyte esterase and nitrate patient still had high-grade fevers patient was given Rocephin. Patient appeared to be severely septic with the elevated lactic acid tachycardic low blood pressure follow-up which improved now patient was receiving. Patient was appropriately hydrated and was on 1 50 mL of normal saline now being switched 100 mL denied any other abnormal vaginal discharge or bleeding. Denied any cough shortness of breath did Review of Systems REVIEW OF SYSTEMS: CONSTITUTIONAL: As mentioned in HPI HEENT: No recent visual problems or hearing problems. Denied any sore throat. CARDIOVASCULAR: No chest pain, orthopnea, PND, no palpitations, no syncope. PULMONARY: No shortness of breath, no cough, no hemoptysis. GASTROINTESTINAL: No diarrhea, no nausea, no vomiting, no abdominal pain. NEUROLOGICAL: No headaches, no weakness, no numbness. HEMATOLOGICAL: Denies any bleeding or petechiae. GENITOURINARY: Denies any burning micturition, frequency, or urgency. MUSCULOSKELETAL/RHEUMATOLOGICAL: Denies any joint pain, swelling, or any muscle pain. ENDOCRINE: Denies any polyuria or polydipsia. The rest of the 14-point review of systems is negative. Past Medical History Past Medical History: No Reported History History of Any Multi-Drug Resistant Organisms: None Reported Past Surgical History: No Surgical Hx Reported Past Anesthesia/Blood Transfusion Reactions: No Reported Reaction Past Psychological History: No Psychological Hx Reported Smoking Status: Never smoker Past Alcohol Use History: None Reported Past Drug Use History: None Reported - Past Family History Mother Family Medical History: Cancer Additional Family Medical History / Comment(s): Colon Medications and Allergies Home Medications Medication Instructions Recorded Confirmed Type [id number]-Ejggc Acid 1 cap PO DAILY #30 cap 08/22/18 10/09/18 Rx [-U Capsule (formulary)] Allergies Allergy/AdvReac Type Severity Reaction Status Date / Time No Known Allergies Allergy Verified 10/10/18 00:14 Physical Exam Vitals: Vital Signs Temp Pulse Pulse Pulse Resp BP BP 10/10/18 12:35 101.2 F H 98 20 99/55 10/10/18 11:05 100.5 F H 10/10/18 09:17 99.4 F 10/10/18 06:57 99.3 F 102 H 16 98/63 10/10/18 00:00 98.1 F 81 16 102/56 10/09/18 23:30 98.2 F 93 14 102/59 10/09/18 23:20 94 7 L 102/59 10/09/18 23:10 91 7 L 98/53 10/09/18 23:00 98/53 10/09/18 22:50 98/53 10/09/18 22:40 96 10 L 99/56 10/09/18 22:31 99 99/56 10/09/18 22:20 97 100/58 10/09/18 22:10 101 H 8 L 108/62 10/09/18 22:00 108 H 20 110/65 10/09/18 21:56 101.5 F H 10/09/18 21:52 20 10/09/18 20:25 102.5 F H 135 H 19 98/61 Pulse Ox 10/10/18 12:35 98 10/10/18 11:05 10/10/18 09:17 10/10/18 06:57 98 10/10/18 00:00 97 10/09/18 23:30 95 10/09/18 23:20 96 10/09/18 23:10 96 10/09/18 23:00 10/09/18 22:50 10/09/18 22:40 95 10/09/18 22:31 94 L 10/09/18 22:20 95 10/09/18 22:10 94 L 10/09/18 22:00 96 10/09/18 21:56 10/09/18 21:52 96 10/09/18 20:25 96 Intake and Output 10/10/18 10/10/18 10/10/18 06:59 14:59 22:59 Intake Total 2860 Output Total 451 Balance 2860 -451 Intake: Amount of Fluid Infused ( 1700 ml) Oral 1160 Output: Urine 450 Emesis 1 Other: Voiding Method Toilet Toilet # Voids 1 1 PHYSICAL EXAMINATION: GENERAL: The patient is alert and oriented x3, not in any acute distress. Well developed, well nourished. HEENT: Pupils are round and equally reacting to light. EOMI. No scleral icterus. No conjunctival pallor. Normocephalic, atraumatic. No pharyngeal erythema. No thyromegaly. CARDIOVASCULAR: S1 and S2 present. No murmurs, rubs, or gallops. PULMONARY: Chest is clear to auscultation, no wheezing or crackles. ABDOMEN: Soft, nontender, nondistended, normoactive bowel sounds. No palpable organomegaly. MUSCULOSKELETAL: No joint swelling or deformity. EXTREMITIES: No cyanosis, clubbing, or pedal edema. NEUROLOGICAL: Gross neurological examination did not reveal any focal deficits. SKIN: No rashes. Results CBC & Chem 7: 10/09/18 21:20 10/09/18 21:20 Labs: Abnormal Lab Results - Last 24 Hours (Table) 10/09/18 10/09/18 10/09/18 Range/Units 20:36 21:20 21:20 WBC 18.0 H (4.0-11.0) k/uL RBC 3.65 L (3.80-5.40) m/uL Hgb 11.3 L (11.4-16.0) gm/dL Hct 32.8 L (34.0-46.0) % Neutrophils # 15.8 H (1.3-7.7) k/uL Lymphocytes # 0.8 L (1.0-4.8) k/uL Monocytes # 1.1 H (0-1.0) k/uL Sodium 131 L (137-145) mmol/L Chloride 97 L (98-107) mmol/L Carbon Dioxide 21 L (22-30) mmol/L Glucose 116 H (74-99) mg/dL Urine Appearance Cloudy H (Clear) Urine Protein 1+ H (Negative) Urine Ketones 4+ H (Negative) Urine Blood Small H (Negative) Ur Leukocyte Esterase Large H (Negative) Urine RBC 9 H (0-5) /hpf Urine WBC 171 H (0-5) /hpf Urine WBC Clumps Occasional H (None) /hpf Ur Squamous Epith Cells 21 H (0-4) /hpf Urine Bacteria Many H (None) /hpf Urine Mucus Many H (None) /hpf Urine Yeast (Budding) Occasional H (None) /hpf Microbiology - Last 24 Hours (Table) 10/09/18 20:36 Urine Culture - Preliminary Urine,Voided Thrombosis Risk Factor Assmnt - Choose All That Apply Any of the Below Risk Factors Present?: Yes Each Factor Represents 1 point: or , Sepsis (< 1month) Thrombosis Risk Factor Assessment Total Risk Factor Score: 2 Thrombosis Risk Factor Assessment Level: Low Risk Assessment and Plan Plan: -Severe sepsis secondary to urinary tract infection and pyelonephritis: Patient will be continued on Rocephin IV IV fluids patient and he is to have fever. Awaiting urine cultures -Pregnancies second trimester: Avoid medication that effect fetus. I really wanted to give her Rocephin 2 g as it crosses placenta will stay with Rocephin 1 g daily. -Leukocytosis secondary to sepsis -Hypervolemic hyponatremia expected to improve with IV fluid resuscitation
[2018-10-10] MEDS: SODIUM CHLORIDE 0.9% 1,000 ML IV SCH (15:42)
[2018-10-11] MEDS ORDERED: ACETAMINOPHEN TAB 325 MG TAB ONE (03:00)
[2018-10-11] MEDS ORDERED: SODIUM CHLORIDE 0.9% 1,000 ML BAG ONE (03:00)
[2018-10-11] MEDS: ONDANSETRON 4 MG/2 ML VIAL IVP PRN (06:27)
[2018-10-11 08:58] LABS: HCT 24.8 % (34.0-46.0); MCH 31.4 pg (25.0-35.0); MCHC 33.4 g/dL (31.0-37.0); Mean Platelet Volume 7.5; Platelet Count 174 k/uL (150-450); RBC 2.63 m/uL (3.80-5.40); RDW 13.5 % (11.5-15.5); WBC 10.5 k/uL (4.0-11.0)
[2018-10-11 09:03] LABS: HGB 8.3 gm/dL (11.4-16.0)
[2018-10-11 09:37] LABS: Anion Gap 8 mmol/L; Blood Urea Nitrogen 4 mg/dL (7-17); Calcium 8.3 mg/dL (8.4-10.2); Carbon Dioxide 21 mmol/L (22-30); Chloride 106 mmol/L (98-107); Glucose 118 mg/dL (74-99); Potassium 3.5 mmol/L (3.5-5.1); Sodium 135 mmol/L (137-145)
[2018-10-11] MEDS: ACETAMINOPHEN TAB 325 MG TAB PO PRN ×2 (14:02→20:41)
--- NOTE | 2018-10-11 14:53 | P.PN ---
Subjective Patient was admitted secondary to sepsis from a urinary tract infection. Patient also hyponatremic. Patient has gram-negative bacilli in the urine, cultures and studies are pending. Patient was febrile last night patient is afebrile since morning. Patient will be continued on Rocephin and await the urine cultures and studies possibility of discharge tomorrow patient is feeling much better today patient will be continued on IV fluids Constitutional: Denied any fatigue denied any fever. Cardio vascular: denied any chest pain, palpitations Gastrointestinal denied any nausea vomiting Pulmonary: Denied any shortness of breath cough Neurologic denied any new focal deficits All inpatient medications were reviewed and appropriate changes in these medications as dictated in the interval history and assessment and plan. Objective - Vital Signs Vital signs: Vital Signs Temp 97.3 F L 10/11/18 12:16 Pulse 75 10/11/18 12:16 Resp 14 10/11/18 12:16 BP 99/63 10/11/18 12:16 Pulse Ox 100 10/11/18 12:16 Intake & Output 10/10/18 10/11/18 10/11/18 18:59 06:59 18:59 Intake Total 1200 Output Total 751 1500 900 Balance -751 -300 -900 Intake: Oral 1200 Output: Urine 750 1400 900 Emesis 1 100 Other: Voiding Method Toilet Toilet Toilet # Voids 1 3 - Exam PHYSICAL EXAMINATION: GENERAL: The patient is alert and oriented x3, not in any acute distress. Well developed, well nourished. HEENT: Pupils are round and equally reacting to light. EOMI. No scleral icterus. No conjunctival pallor. Normocephalic, atraumatic. No pharyngeal erythema. No thyromegaly. CARDIOVASCULAR: S1 and S2 present. No murmurs, rubs, or gallops. PULMONARY: Chest is clear to auscultation, no wheezing or crackles. ABDOMEN: Soft, nontender, nondistended, normoactive bowel sounds. No palpable organomegaly. MUSCULOSKELETAL: No joint swelling or deformity. EXTREMITIES: No cyanosis, clubbing, or pedal edema. NEUROLOGICAL: Gross neurological examination did not reveal any focal deficits. SKIN: No rashes. - Labs CBC & Chem 7: 10/11/18 08:07 10/11/18 08:07 Labs: Abnormal Lab Results - Last 24 Hours (Table) 10/11/18 10/11/18 Range/Units 08:07 08:07 RBC 2.63 L (3.80-5.40) m/uL Hgb 8.3 L D (11.4-16.0) gm/dL Hct 24.8 L (34.0-46.0) % Sodium 135 L (137-145) mmol/L Carbon Dioxide 21 L (22-30) mmol/L BUN 4 L (7-17) mg/dL Creatinine 0.43 L (0.52-1.04) mg/dL Glucose 118 H (74-99) mg/dL Calcium 8.3 L (8.4-10.2) mg/dL Microbiology - Last 24 Hours (Table) 10/09/18 21:37 Blood Culture - Preliminary Blood No Growth after 24 hours 10/09/18 21:20 Blood Culture - Preliminary Blood No Growth after 24 hours 10/09/18 20:36 Urine Culture - Preliminary Urine,Voided Gram Neg Bacilli Assessment and Plan Plan: -Severe sepsis secondary to urinary tract infection and pyelonephritis: Patient will be continued on Rocephin IV IV fluids patient and he is to have fever. Awaiting urine cultures. Urine cultures are so far showing gram-negative bacilli -Pregnancies second trimester: Avoid medication that effect fetus. I really wanted to give her Rocephin 2 g as it crosses placenta will stay with Rocephin 1 g daily. -Leukocytosis secondary to sepsis -Hypervolemic hyponatremia improved with IV fluid resuscitation
[2018-10-11] MEDS: SODIUM CHLORIDE 0.9% 1,000 ML IV SCH ×2 (17:14→20:43)
[2018-10-12] MEDS: ACETAMINOPHEN TAB 325 MG TAB PO PRN ×2 (02:00→10:35)
[2018-10-12] MEDS: SODIUM CHLORIDE 0.9% 1,000 ML IV SCH ×3 (06:09→08:25)
[2018-10-12 08:40] VITALS: BP 93/55; PULSE 87; RESP 20; TEMP 97.7
--- NOTE | 2018-10-12 14:47 | P.DS ---
Providers Date of admission: 10/09/18 23:13 Attending physician: Marifer Mckinney Primary care physician: Joseph Nobles [facility] Course: Patient was admitted secondary to sepsis from a urinary tract infection. Patient also hyponatremic. Patient has gram-negative bacilli in the urine, cultures and studies are pending. Patient was febrile last night patient is afebrile since morning. Patient will be continued on Rocephin and await the urine cultures and studies possibility of discharge tomorrow patient is feeling much better today patient will be continued on IV fluids 10/12/2018 Patient's urine cultures are positive for E. coli which is pansensitive patient will be discharged on Ceftin for 7 more days completing total therapy of 10 days PHYSICAL EXAMINATION: GENERAL: The patient is alert and oriented x3, not in any acute distress. Well developed, well nourished. HEENT: Pupils are round and equally reacting to light. EOMI. No scleral icterus. No conjunctival pallor. Normocephalic, atraumatic. No pharyngeal erythema. No thyromegaly. CARDIOVASCULAR: S1 and S2 present. No murmurs, rubs, or gallops. PULMONARY: Chest is clear to auscultation, no wheezing or crackles. ABDOMEN: Soft, nontender, nondistended, normoactive bowel sounds. No palpable organomegaly. MUSCULOSKELETAL: No joint swelling or deformity. EXTREMITIES: No cyanosis, clubbing, or pedal edema. NEUROLOGICAL: Gross neurological examination did not reveal any focal deficits. SKIN: No rashes. For other chronic medical problems hospitalization course please refer to my dictation of progress note from yesterday Patient Condition at Discharge: Good Plan - Discharge Summary Discharge Rx Participant: Yes New Discharge Prescriptions: New Cefuroxime Axetil [Ceftin] 500 mg PO BID 7 Days #14 tab No Action Xki-Klkb-Jazbw Acid [-U Capsule (formulary)] 1 cap PO DAILY #30 cap Discharge Medication List Wkc-Dvro-Ocdvu Acid [-U Capsule (formulary)] 1 cap PO DAILY #30 cap 08/22/18 [Rx] Cefuroxime Axetil [Ceftin] 500 mg PO BID 7 Days #14 tab 10/12/18 [Rx] Follow up Appointment(s)/Referral(s): Giuliano Ruiz MD [Primary Care Provider] - 10/19/18 11:00 am Activity/Diet/Wound Care/Special Instructions: Continue diet as tolerated. Fluids are always encouraged. Tylenol as needed for pain; next dose can be taken at 4:30pm today. Start antibiotic this evening and continue taking as instructed by physician until finished. Call physician with any questions comments concerns worsening returning symptoms,fever 101.1 or higher, not tolerating diet, not tolerating fluids, unable to urinate or empty bladder, pain that is not controlled by Tylenol. follow up with physician as directed (apt has been made for you) Discharge Disposition: HOME SELF-CARE
== END 2018-10-12 13:37 | disposition home or self-care (01) | DRG 831 ==
LOC: EC 20:14 → EEVIPCON 23:13 → 6PED 23:13
PROVIDERS: ADMIT Internal Medicine; ATTEND Internal Medicine
DX: O98.812 Other maternal infectious and parasitic diseases complicating pregnancy, second trimester (principal); A41.51 Sepsis due to Escherichia coli [E. coli]; R65.20 Severe sepsis without septic shock; O23.02 Infections of kidney in pregnancy, second trimester; E87.1 Hypo-osmolality and hyponatremia; O99.282 Endocrine, nutritional and metabolic diseases complicating pregnancy, second trimester; Z3A.15 15 weeks gestation of pregnancy; Z87.440 Personal history of urinary (tract) infections
CPT/HCPCS: 36415; 76770; 76805; 80048; 80053; 81001; 83605; 85025; 85027; 85610; 85730; 87040; 87077; 87086; 87186; 87502; 93005; 96361; 96374; 99284

== ENCOUNTER 2019-03-29 06:00 | Inpatient (IN) | payer MEDICARE, OTHER ==
--- NOTE | 2019-03-28 19:19 | P.HPOB ---
History of Present Illness H&P Date: 03/28/19 Chief Complaint: Induction of labor This is a 19-year-old female 2 para 0 with an estimated date of confinement of 03/30/2019, estimated gestational age of 39-6/7 weeks, who presents to labor and delivery for induction of labor. She admits to good movement. She has been feeling irregular contractions and pressure. Her has been essentially uncomplicated. labs: GC/Chlamydia/Trichomonas-negative Hepatitis B surface antigen-negative RPR-nonreactive Rubella-immune Blood type-AB+ Antibody screen-negative HIV-nonreactive Hemoglobin-11.3 Toxoplasma screen-negative Obstetrical ultrasound-normal anatomy Quad screen-negative One hour Glucola-99 Group B streptococcus-negative Obstetrical history: . History of 1 miscarriage. Gynecologic history: No history of sexual transmitted diseases. Social history: She is single. She is living with her mother now due to learning disability. Her adoptive mom is her legal guardian. She is not currently working. Review of Systems Constitutional: Denies chills, Denies fever Eyes: denies blurred vision, denies pain Ears, nose, mouth and throat: Denies headache, Denies sore throat Cardiovascular: Denies chest pain, Denies shortness of breath Respiratory: Denies cough Gastrointestinal: Reports abdominal pain (Irregular contractions), Denies diarrhea, Denies nausea, Denies vomiting Genitourinary: Reports pelvic pain, Reports Musculoskeletal: Reports low back pain Integumentary: Denies pruritus, Denies rash Neurological: Denies numbness, Denies weakness Psychiatric: Denies anxiety, Denies depression Past Medical History Past Medical History: No Reported History History of Any Multi-Drug Resistant Organisms: None Reported Past Surgical History: No Surgical Hx Reported Past Anesthesia/Blood Transfusion Reactions: No Reported Reaction Past Psychological History: ADD/ADHD Additional Psychological History / Comment(s): Cognitive impairment, learning disorder Smoking Status: Never smoker Past Alcohol Use History: None Reported Past Drug Use History: Marijuana (History prior to learning about the ) - Past Family History Mother Family Medical History: Cancer Additional Family Medical History / Comment(s): Colon Medications and Allergies Home Medications Medication Instructions Recorded Confirmed Type Wkx-Btjc-Cfqgh Acid 1 cap PO DAILY #30 cap 08/22/18 10/09/18 Rx [-U Capsule (formulary)] Allergies Allergy/AdvReac Type Severity Reaction Status Date / Time No Known Allergies Allergy Verified 10/10/18 00:14 Exam Osteopathic Statement: *. No significant issues noted on an osteopathic structural exam other than those noted in the History and Physical/Consult. HEENT: Within normal limits Heart: Regular rate and rhythm Lungs: Clear to auscultation bilaterally Abdomen: Cervix: 1 cm/70%/-2 to -1 station heart tones: 140s by Doppler Extremities: Negative Homans Assessment and Plan (1) 39 weeks gestation of Status: Acute Code(s): Z3A.39 - 39 WEEKS GESTATION OF SNOMED Code(s): 68331077 Plan: Admission for induction of labor. Expectant management. Epidural anesthesia if desired.
[2019-03-29] MEDS ORDERED: LIDOCAINE 0.5% (PF) 5 MG/ML (50 ML SDV) SQ PRN (06:54)
[2019-03-29] MEDS ORDERED: LIDOCAINE 1% 20 ML VIAL (10MG/ML) FOR IV START INTRADERMA PRN (06:54)
[2019-03-29] MEDS ORDERED: OXYTOCIN 30 UNITS/500 ML NS 30 UNIT in SALINE 1 500ML.BAG IV SCH (06:54)
[2019-03-29] MEDS ORDERED: METHYLERGONOVINE 0.2 MG/ML 1 ML AMP IM PRN (06:54)
[2019-03-29] MEDS ORDERED: TERBUTALINE 1 MG/ML VIAL SQ PRN (06:54)
[2019-03-29] MEDS ORDERED: CARBOPROST TROMETHAMINE 250 MCG/ML 1 ML AMP IM PRN (06:54)
[2019-03-29] MEDS ORDERED: OXYTOCIN 10 UNIT/ML 1 ML VIAL IM PRN (06:54)
[2019-03-29] MEDS: LACTATED RINGERS 1,000 ML IV SCH ×2 (07:02→11:18)
[2019-03-29 07:04] LABS: Basophils % (A) 1 %; Eosinophils # (A) 0.1 k/uL (0-0.7); Eosinophils % (A) 2 %; HCT 35.2 % (34.0-46.0); HGB 11.2 gm/dL (11.4-16.0); Lymphocytes # (A) 1.8 k/uL (1.0-4.8); Lymphocytes % (A) 26 %; MCH 28.7 pg (25.0-35.0); MCHC 31.9 g/dL (31.0-37.0); MCV 89.8 fL (80.0-100.0); Mean Platelet Volume 8.5; Monocytes # (A) 0.5 k/uL (0-1.0); Monocytes % (A) 8 %; Neutrophils % (A) 60 %; Platelet Count 212 k/uL (150-450); RBC 3.92 m/uL (3.80-5.40); RDW 14.6 % (11.5-15.5); WBC 6.7 k/uL (3.8-10.6)
[2019-03-29 07:14] VITALS: BMI 24.0
[2019-03-29] MEDS ORDERED: BUTORPHANOL 1 MG/ML 1 ML VIAL IV PRN (09:32)
[2019-03-29] MEDS ORDERED: ROPIVACAINE 5MG/ML 20ML VIAL ONE (11:04)
[2019-03-29] MEDS ORDERED: SODIUM CHLORIDE 0.9% 100 ML BAG ONE (11:04)
[2019-03-29] MEDS ORDERED: fentaNYL (PF) 50 MCG/ML 5 ML AMP ONE (11:04)
[2019-03-29] MEDS ORDERED: ROPIVACAINE 100 MG, fentaNYL (PF) 200 MCG in SODIUM CHLORIDE 0.9% 76 ML EPIDURAL ONE (12:25)
--- NOTE | 2019-03-29 17:57 | P.PROBDLV ---
Vaginal Delivery Note - . Vaginal Delivery Note: The patient progressed to complete dilation after oxytocin induction of labor and artificial rupture membranes with clear fluid noted. She did receive epidural anesthesia while in labor. Once reaching complete dilation, she began pushing. 's head came to a crown. With one further push, the 's head delivered across the perineum followed by the anterior shoulder. Nose and mouth were bulb suctioned at the perineum and nuchal cord 2 was reduced around the 's head. With one remaining push, the remainder the infant easily delivered and was placed on mother's abdomen. Cord was clamped and cut and was taken to warmer for evaluation. A viable male was noted with scores of 8 at 1 minute and 9 at 5 minutes. weight was 7 lbs. 4 oz. Placenta delivered shortly thereafter, intact, with a three-vessel cord. Uterus contracted well after oxytocin was given and uterine massage was carried out. Inspection of the perineum revealed bilateral periurethral lacerations. The right one was noted to be bleeding and therefore was anesthetized with 1% lidocaine and then sutured with 3-0 Vicryl suture in a running locked fashion. The left one was noted to be hemostatic and the patient declined suturing. Estimated blood loss is approximately 150 mL's. Both mother and are in stable condition.
[2019-03-29] MEDS ORDERED: diphenhydrAMINE 50 MG/ML 1 ML VIAL IVP PRN ×2 (18:00)
[2019-03-29] MEDS ORDERED: OXYTOCIN 20 UNITS/1000 ML NS 1,000 ML IV SCH (18:00)
[2019-03-29] MEDS ORDERED: ZOLPIDEM 5 MG TAB PO PRN (18:00)
[2019-03-29] MEDS ORDERED: LANOLIN CREAM 5 GM TUBE TOPICAL PRN (18:00)
[2019-03-29] MEDS ORDERED: diphenhydrAMINE 50 MG CAP PO PRN (18:00)
[2019-03-29] MEDS ORDERED: HYDROCORTISONE 2.5% RECTAL CREAM 30 GM TUBE RECTAL PRN (18:00)
[2019-03-29] MEDS ORDERED: WITCH HAZEL 1 EACH MED..PAD TOPICAL PRN (18:00)
[2019-03-29] MEDS ORDERED: BENZOCAINE/MENTHOL SPRAY 1 GM/SPRAY AEROSOL TOPICAL PRN (18:00)
[2019-03-29] MEDS ORDERED: ACETAMINOPHEN TAB 325 MG TAB PO PRN (18:00)
[2019-03-29] MEDS ORDERED: diphenhydrAMINE 25 MG CAP PO PRN (18:00)
[2019-03-29] MEDS ORDERED: SIMETHICONE 80 MG CHEWABLE PO PRN (18:00)
[2019-03-29] MEDS: SENNOSIDES-DOCUSATE SODIUM 1 EACH TAB PO SCH (20:39)
[2019-03-29] MEDS: IBUPROFEN 600 MG TAB PO PRN (20:39)
[2019-03-30] MEDS: IBUPROFEN 600 MG TAB PO PRN ×2 (06:19→17:41)
[2019-03-30 07:26] LABS: Basophils # (A) 0.1 k/uL (0-0.2); Basophils % (A) 0 %; Eosinophils # (A) 0.1 k/uL (0-0.7); Eosinophils % (A) 1 %; HCT 33.2 % (34.0-46.0); HGB 10.8 gm/dL (11.4-16.0); Lymphocytes # (A) 1.4 k/uL (1.0-4.8); Lymphocytes % (A) 12 %; MCH 29.2 pg (25.0-35.0); MCHC 32.6 g/dL (31.0-37.0); MCV 89.6 fL (80.0-100.0); Mean Platelet Volume 8.3; Monocytes # (A) 0.8 k/uL (0-1.0); Monocytes % (A) 6 %; Neutrophils % (A) 80 %; Platelet Count 222 k/uL (150-450); RDW 15.4 % (11.5-15.5); WBC 12.5 k/uL (3.8-10.6)
[2019-03-30] MEDS: SENNOSIDES-DOCUSATE SODIUM 1 EACH TAB PO SCH ×2 (08:01→20:28)
--- NOTE | 2019-03-30 12:00 | P.DS ---
Providers Date of admission: 03/29/19 06:27 Expected date of discharge: 03/30/19 Attending physician: Gisela Hendrickson Primary care physician: Stated None - Discharge Diagnosis(es) (1) 39 weeks gestation of Current Visit: No Status: Acute Hospital Course: This is a 19-year-old female 2 para 0 at 39-6/7 weeks who presents for induction of labor. She underwent oxytocin induction of labor and delivered vaginally a viable male on 03/29/2019 with scores of 8 at 1 minute and 9 at 5 minutes and weight of 7 lbs. 4 oz. Her course has been uncomplicated. Lochia is decreasing. Pain is fairly well controlled. She is working on breast-feeding. Vital signs are stable. Abdomen is soft with fundus firm and nontender. Extremities show negative Homans. Impression is status post vaginal delivery day #1. Plan is to discharge home later today. Routine instructions are given. She will be given a prescription for a breast pump and ibuprofen. She is advised to follow-up in the office in 6 weeks for a check. She is advised to call the office if she has any further questions or concerns prior to her appointment time. Procedures: Oxytocin induction of labor Spontaneous vaginal delivery of a viable male infant on 03/29/2018 Patient Condition at Discharge: Stable Plan - Discharge Summary Discharge Rx Participant: No New Discharge Prescriptions: New Ibuprofen [Motrin] 600 mg PO Q6HR PRN #60 tab PRN Reason: Mild Pain Or Fever >= 100.5 Continue Fhj-Osro-Aducg Acid [-U Capsule (formulary)] 1 cap PO DAILY #30 cap Discharge Medication List Vvu-Fqpg-Svsxe Acid [-U Capsule (formulary)] 1 cap PO DAILY #30 cap 08/22/18 [Rx] Ibuprofen [Motrin] 600 mg PO Q6HR PRN #60 tab 03/30/19 [Rx] Follow up Appointment(s)/Referral(s): Gisela Hendrickson DO [Doctor of Osteopathic Medicine] - 6 Weeks Activity/Diet/Wound Care/Special Instructions: Instructions 1. Do not begin any exercise program for 3 weeks. 2. Do not resume sexual relations for 3 weeks or longer if uncomfortable. 3. You may take tub baths or showers at any time. 4. You may use tampons if desired after 3 weeks. 5. Keep the area of episiotomy (stitches) clean and dry. 6. If you are not nursing, wear a good fitting, supportive bra during the day and limit fluid intake for at least 1 week to prevent breast engorgement. 7. Call the office, [phone], within the next week to make appointment for your 6 week checkup if it has not already been made. 8. Report any of the following occurrences to the doctor promptly: a. Heavy, excessive bleeding b. Chills, fever c. Burning or frequency of urination d. Pain or redness and breasts if nursing e. Increasing pain or swelling in episiotomy (stitches). In addition to the above instructions, the following additional should be followed: 1. No heavy lifting or straining (exercising) until after 6 week checkup. 2. Keep abdominal incision clean and dry: You may wear a dressing if more comfortable. 3. Make office appointment for 10 days after going home or as instructed by her doctor. Discharge Disposition: HOME SELF-CARE
[2019-03-31 00:31] VITALS: RESP 16
[2019-03-31] MEDS: IBUPROFEN 600 MG TAB PO PRN (03:00)
[2019-03-31] MEDS: SENNOSIDES-DOCUSATE SODIUM 1 EACH TAB PO SCH (07:55)
[2019-03-31 07:58] VITALS: BP 101/66; PULSE 70; TEMP 98.2
== END 2019-03-31 11:46 | disposition home or self-care (01) | DRG 807 ==
LOC: 4FBP 06:27
PROVIDERS: ADMIT Obstetrics & Gynecology; ATTEND Obstetrics & Gynecology
PROC: 3E0R3NZ Introduction of Analgesics, Hypnotics, Sedatives into Spinal Canal, Percutaneous Approach (ICD-10-PCS; principal; 2019-03-29)
PROC: 0UQMXZZ Repair Vulva, External Approach (ICD-10-PCS; principal; 2019-03-29)
PROC: 10E0XZZ Delivery of Products of Conception, External Approach (ICD-10-PCS; principal; 2019-03-29)
PROC: 10907ZC Drainage of Amniotic Fluid, Therapeutic from Products of Conception, Via Natural or Artificial Opening (ICD-10-PCS; principal; 2019-03-29)
PROC: 00HU33Z Insertion of Infusion Device into Spinal Canal, Percutaneous Approach (ICD-10-PCS; principal; 2019-03-29)
PROC: 3E033VJ Introduction of Other Hormone into Peripheral Vein, Percutaneous Approach (ICD-10-PCS; principal; 2019-03-29)
DX: O69.81X0 Labor and delivery complicated by cord around neck, without compression, not applicable or unspecified (principal); Z37.0 Single live birth; O71.82 Other specified trauma to perineum and vulva; Z3A.39 39 weeks gestation of pregnancy; O99.344 Other mental disorders complicating childbirth; F81.9 Developmental disorder of scholastic skills, unspecified; F90.9 Attention-deficit hyperactivity disorder, unspecified type
CPT/HCPCS: 85025; 86850; 86900; 86901

== ENCOUNTER 2020-10-21 11:10 | Outpatient (CLI) | payer MEDICARE, OTHER ==
[2020-10-21 12:20] VITALS: BP 110/63; PULSE 96; RESP 14; TEMP 97
--- NOTE | 2020-10-21 12:22 | US ---
EXAMINATION TYPE: US OB >= 14 wk fetus DATE OF EXAM: 10/21/2020 COMPARISON: None CLINICAL HISTORY: well being No complications. TECHNIQUE: Transabdominal (TA) GESTATIONAL AGE / DATING Physician Established: (36 weeks/3 days) EDC: 11/15/2020 Dates by Current Scan: (36 weeks/6 days) EDC: 11/12/2020 Beta HCG (if available): Not available at this time SURVEY IUP: Single PLACENTA: Anterior PREVIA: No Previa RIN: 16.9 cm Normal CERVICAL LENGTH (transabdominal: norm > 3.0cm): 3.1 cm BIOMETRY PRESENTATION: Vertex BPD: 9.0 cm 36 weeks / 3 days HC: 33.5 cm 38 weeks / 3 days AC: 31.5 cm 35 weeks / 4 days FL: 7.1 cm 36 weeks / 4 days ESTIMATED WEIGHT IN GRAMS: 2856 grams ESTIMATED WEIGHT IN LBS/OZ: 6 lbs. 15 oz. WEIGHT PERCENTAGE BASED ON ESTABLISHED DATES: 45% HC/AC: 1.1 Normal FL/AC: 23% Normal HEART RATE: 127 bpm RHYTHM: Normal Single live IUP measuring 36 weeks 6 days. IMPRESSION: 1. Single intrauterine gestation estimated at 36 weeks 6 days gestation based on current ultrasound m easurements. This would have a calculated EDC of 11/12/2020 based on the current ultrasound measurement s correlate this with the physician established EDC of 11/15/2020. 2. Cardiac activity measures 127 bpm. 3. Estimated weight based on current ultrasound measurements of 2856 g
--- NOTE | 2020-10-22 11:28 | US ---
EXAMINATION TYPE: US OB BPP wo non-stress DATE OF EXAM: 10/21/2020 COMPARISON: CLINICAL HISTORY: well being . No complications EXAM PERFORMED: Transabdominal (TA) BPP PARAMETERS: PRESENTATION: Vertex HEART RATE: 127 bpm RHYTHM: Normal RIN: 16.9 DIAPHRAGM IMAGED: Yes BPP SCORIN. Breathin (1 episode of breathing of 30 second duration in 30 minutes of scanning time) 2. Movement: 2 (at least 3 discrete body movements in 30 minutes) 3. Tone: 2 (1 episode of active flexion/extension of limb) 4. RIN: 2 (RIN index > 5cm) TOTAL SCORE: 8 / 8
== END 2020-10-21 11:45 | disposition left against medical advice (07) ==
LOC: FBPOP 11:10
PROVIDERS: ATTEND Obstetrics & Gynecology
DX: Z36.89 Encounter for other specified antenatal screening (principal); Z3A.39 39 weeks gestation of pregnancy
CPT/HCPCS: 76805; 76819

== ENCOUNTER 2020-11-19 06:15 | Inpatient (IN) | payer MEDICARE, OTHER ==
[2020-11-19] MEDS ORDERED: LIDOCAINE 0.5% (PF) 5 MG/ML (50 ML SDV) SQ PRN (07:13)
[2020-11-19] MEDS ORDERED: TERBUTALINE 1 MG/ML VIAL SQ PRN (07:13)
[2020-11-19] MEDS ORDERED: OXYTOCIN 10 UNIT/ML 1 ML VIAL IM PRN (07:13)
[2020-11-19] MEDS ORDERED: CARBOPROST TROMETHAMINE 250 MCG/ML 1 ML AMP IM PRN (07:13)
[2020-11-19] MEDS ORDERED: METHYLERGONOVINE 0.2 MG/ML 1 ML AMP IM PRN (07:13)
[2020-11-19] MEDS ORDERED: OXYTOCIN 30 UNITS/500 ML NS 30 UNIT in SALINE 1 500ML.BAG IV SCH (07:15)
[2020-11-19] MEDS ORDERED: LACTATED RINGERS 1,000 ML IV SCH (07:15)
[2020-11-19 07:50] LABS: Basophils % (A) 0 %; Eosinophils # (A) 0.1 k/uL (0-0.7); Eosinophils % (A) 2 %; HCT 30.7 % (34.0-46.0); HGB 10.3 gm/dL (11.4-16.0); Lymphocytes # (A) 1.7 k/uL (1.0-4.8); Lymphocytes % (A) 24 %; MCH 27.4 pg (25.0-35.0); MCHC 33.6 g/dL (31.0-37.0); MCV 81.4 fL (80.0-100.0); Mean Platelet Volume 7.7; Monocytes # (A) 0.4 k/uL (0-1.0); Monocytes % (A) 6 %; Neutrophils # (A) 4.6 k/uL (1.3-7.7); Neutrophils % (A) 66 %; Platelet Count 280 k/uL (150-450); RBC 3.77 m/uL (3.80-5.40); RDW 13.6 % (11.5-15.5)
[2020-11-19] MEDS: BUTORPHANOL 1 MG/ML 1 ML VIAL IV PRN ×2 (09:47→12:29)
[2020-11-19] MEDS ORDERED: diphenhydrAMINE 50 MG CAP PO PRN (12:27)
[2020-11-19] MEDS ORDERED: HYDROCORTISONE 2.5% RECTAL CREAM 30 GM TUBE RECTAL PRN (12:27)
[2020-11-19] MEDS ORDERED: diphenhydrAMINE 25 MG CAP PO PRN (12:27)
[2020-11-19] MEDS ORDERED: diphenhydrAMINE 50 MG/ML 1 ML VIAL IVP PRN ×2 (12:27)
[2020-11-19] MEDS ORDERED: SIMETHICONE 80 MG CHEWABLE PO PRN (12:27)
[2020-11-19] MEDS ORDERED: BENZOCAINE/MENTHOL SPRAY 1 GM/SPRAY AEROSOL TOPICAL PRN (12:27)
[2020-11-19] MEDS ORDERED: LANOLIN CREAM 5 GM TUBE TOPICAL PRN (12:27)
[2020-11-19] MEDS ORDERED: ZOLPIDEM 5 MG TAB PO PRN (12:27)
--- NOTE | 2020-11-19 12:29 | P.HPOB ---
History of Present Illness H&P Date: 11/19/20 Chief Complaint: Intrauterine at term: Induction of labor Patient is a 20-year-old at 40 and 4 weeks gestation who arrives for induction of labor. She had an ultrasound 2 days ago revealing normal amniotic fluid index, but there was some question as to whether not she had macrosomia so we have moved her induction up to today. Risks of induction were reviewed with patient in detail all questions were answered for her prior to proceeding. Pertinent labs AB+ blood type, Rh and it was negative, rubella is immune, hepatitis B surface antigen was negative and GBS was negative. Her course was unremarkable she is giving the baby up for adoption. All questions are answered for her. We'll plan artificial rupture membranes with clear fluid noted and dilation to 3 cm and 70% effaced and -3 station. Category 1 tracing is noted. Pitocin augmentation of labor as planned. Past Medical History Past Medical History: No Reported History History of Any Multi-Drug Resistant Organisms: None Reported Past Surgical History: No Surgical Hx Reported Past Anesthesia/Blood Transfusion Reactions: No Reported Reaction Past Psychological History: ADD/ADHD Additional Psychological History / Comment(s): Cognitive impairment, learning disorder Smoking Status: Former smoker Past Alcohol Use History: None Reported Past Drug Use History: None Reported - Past Family History Mother Family Medical History: Cancer Additional Family Medical History / Comment(s): Colon Medications and Allergies Allergies Allergy/AdvReac Type Severity Reaction Status Date / Time No Known Allergies Allergy Verified 11/19/20 07:13 Exam Osteopathic Statement: *. No significant issues noted on an osteopathic structural exam other than those noted in the History and Physical/Consult. Vital Signs Temp Pulse Resp BP Pulse Ox 11/19/20 07:16 96.9 F L 82 16 116/59 98 Intake and Output 11/18/20 11/19/20 11/19/20 22:59 06:59 14:59 Other: Weight 70.307 kg - OBG Physical Exam Breast: both: normal (no masses) Abdomen: bowel sounds normal, no diffuse tenderness, no bruit present, no guarding noted, no hepatomegaly, no splenomegaly, no mass Vulva: both: normal Vagina: normal moisture, no discharge Cervix: no lesion, no discharge Uterus: normal size, normal contour Adnexa: both: normal Anus/Rectum: normal perianal skin, no rectal mass, no hemorrhoids, heme negative Results Result Diagrams: 11/19/20 07:30 Abnormal Lab Results - Last 24 Hours (Table) 11/19/20 Range/Units 07:30 RBC 3.77 L (3.80-5.40) m/uL Hgb 10.3 L (11.4-16.0) gm/dL Hct 30.7 L (34.0-46.0) %
--- NOTE | 2020-11-19 12:31 | P.PROBDLV ---
Vaginal Delivery Note - . Vaginal Delivery Note: She progressed complete and pushing with spontaneous vaginal delivery of a viable female over an intact perineum. Following delivery of the head anterior posterior shoulders were easily delivered from right occiput anterior position followed by the remainder the baby. Mouth nares were then bulb suctioned and baby was placed in nurses hands umbilical course clamped cut usual fashion an nursery personnel assume care. Placenta was then delivered intact and Pitocin was added to the IV. She did receive 1 mg of Stadol during this as the pain from trying to deliver the placenta was more than she felt like she could handle. Inspection of perineum revealed some small skin separations but I could not identify any lacerations. During the inspection of the perineum she was very angry and upset and wanted to stop looking and get my hands away from her vagina. Small avulsion's were noted but no gross lacerations therefore I stopped checking at her demand and we will continue to monitor closely. It is possible but unlikely she may need suture placed later but I cannot identify any lacerations at this time.
[2020-11-19] MEDS: IBUPROFEN 600 MG TAB PO SCH ×2 (13:20→23:55)
[2020-11-19] MEDS: ACETAMINOPHEN TAB 325 MG TAB PO PRN (15:50)
[2020-11-19] MEDS: SENNOSIDES-DOCUSATE SODIUM 1 EACH TAB PO SCH (23:55)
[2020-11-20] MEDS: ACETAMINOPHEN TAB 325 MG TAB PO PRN (03:52)
[2020-11-20] MEDS: IBUPROFEN 600 MG TAB PO SCH ×2 (03:52→08:04)
[2020-11-20 08:03] VITALS: BP 104/55; PULSE 80; RESP 16; TEMP 98.2
[2020-11-20] MEDS: SENNOSIDES-DOCUSATE SODIUM 1 EACH TAB PO SCH (08:04)
--- NOTE | 2020-11-20 08:12 | P.DS ---
Providers Date of admission: 11/19/20 07:01 Expected date of discharge: 11/20/20 Attending physician: Pollo Stone Primary care physician: Stated None Hospital Course: Patient is doing very well day 1. She is ambulating, voiding and tolerating her diet. She voices no complaints and is requesting discharge to home today. Vital signs are stable and afebrile. Heart regular, lungs clear, extremities without pain. Abdomen is soft uterus is firm and lochia is reported light. Assessment day 1. Plan discharged home follow up with me in 6 weeks. Prescription for Motrin has been provided to her pharmacy. She is stable for discharge this time. Patient Condition at Discharge: Good Plan - Discharge Summary New Discharge Prescriptions: New Ibuprofen [Motrin] 600 mg PO Q6HR PRN #30 tab PRN Reason: Pain Discharge Medication List Ibuprofen [Motrin] 600 mg PO Q6HR PRN #30 tab 11/20/20 [Rx] Follow up Appointment(s)/Referral(s): Pollo Stone DO [Doctor of Osteopathic Medicine] - 6 Weeks Activity/Diet/Wound Care/Special Instructions: No heavy lifting, limit stairs and driving, and pelvic rest. If any high temperatures, heavy bleeding, or severe pain call my office. Discharge Disposition: HOME SELF-CARE
== END 2020-11-20 09:50 | disposition home or self-care (01) | DRG 807 ==
LOC: 4FBP 07:01
PROVIDERS: ADMIT Obstetrics & Gynecology; ATTEND Obstetrics & Gynecology
PROC: 3E033VJ Introduction of Other Hormone into Peripheral Vein, Percutaneous Approach (ICD-10-PCS; principal; 2020-11-19)
PROC: 10907ZC Drainage of Amniotic Fluid, Therapeutic from Products of Conception, Via Natural or Artificial Opening (ICD-10-PCS; principal; 2020-11-19)
PROC: 10E0XZZ Delivery of Products of Conception, External Approach (ICD-10-PCS; principal; 2020-11-19)
DX: O99.344 Other mental disorders complicating childbirth (principal); Z37.0 Single live birth; F90.9 Attention-deficit hyperactivity disorder, unspecified type; Z3A.40 40 weeks gestation of pregnancy; Z87.891 Personal history of nicotine dependence; F81.9 Developmental disorder of scholastic skills, unspecified
CPT/HCPCS: 85025; 86850; 86900; 86901